=== PATIENT | female | born 1995 | race Two or more races ===

== ENCOUNTER 2024-08-26 18:32 | Inpatient (IN) ==
[2024-08-26 19:11] LABS: Pregnancy Test, Urine Negative (Negative)
[2024-08-26 19:14] LABS: Basophils # (auto) 0.03 K/uL (0.00-0.20); Basophils % (auto) 0.3 %; Eosinophils # (auto) 0.05 K/uL (0.00-0.50); Eosinophils % (auto) 0.5 %; Hematocrit (blood only) 38.6 % (37.0-47.0); Hemoglobin 13.5 g/dl (12.0-16.0); Immature Granulocytes # (auto) 0.03 K/uL (0.01-0.20); Immature Granulocytes % (auto) 0.3 %; Lymphocytes # (auto) 1.62 K/uL (1.20-3.40); Lymphocytes % (auto) 17.7 %; Mean Corpuscular Hemoglobin 32.3 pg (25.0-34.0); Mean Corpuscular Volume 92.3 fL (80.0-100.0); Mean Platelet Volume 11.1 fL (9.4-12.4); Monocytes # (auto) 0.51 K/uL (0.11-0.59); Monocytes % (auto) 5.6 %; Neutrophils # (auto) 6.91 K/uL (1.40-6.50); Neutrophils % (auto) 75.6 %; Platelet Count 254 K/uL (130-400); RDW Coefficient of Variation 12.3 % (11.5-14.5); RDW Standard Deviation 41.3 fL (36.4-46.3); Red Blood Count 4.18 M/uL (4.20-5.40); White Blood Count 9.15 K/ul (4.8-10.8)
[2024-08-26 19:21] LABS: Appearance Urine Clear (Clear); Bacteria Urine Automated None Seen (None Seen); Bilirubin Urine 1+ (Negative); Blood Urine Negative (Negative); Cast Urine Automated 0-2 /lpf (0-2); Color Urine Dark Yellow; Glucose Urine UA Negative (Negative); Ketones Urine 1+ (Negative); Leukocyte Esterase Urine Negative (Negative); Mucus Urine Present (None Prsent); Nitrite Urine Negative (Negative); Protein Urine 1+ (Negative); Urobilinogen Urine Negative (Negative); WBC Urine Automated 0-5 /hpf (0-5); pH Urine 5.5 (4.5-7.5)
[2024-08-26 19:29] LABS: Albumin Globulin Ratio 1.7 (0.9-2); Bilirubin,Total 0.4 mg/dl (0.2-1.0); Calcium 9.6 mg/dl (8.6-10.3); Creatinine Clr Calc Pharmacy 112.5 ml/min; Potassium 3.4 mmol/L (3.5-5.1)
[2024-08-26 19:32] LABS: Acetaminophen < 3 ug/ml (10-30); Salicylate < 3.0 mg/dl (3.0-30)
[2024-08-26 19:43] LABS: Thyroid Stimulating Hormone 2.502 uIu/ml (0.300-4.500)
[2024-08-26 19:50] LABS: Amphetamines+Metham, Urine Neg (Neg); Barbiturates, Urine Neg (Neg); Benzodiazepine, Urine Neg (Neg); Cocaine, Urine Neg (Neg); Fentanyl, Urine Neg (Neg); MDMA (Ecstacy), Urine Neg (Neg); Marijuana, Urine Pos (Neg); Methadone, Urine Neg (Neg); Opiate, Urine Neg (Neg); Phencyclidine, Urine Neg (Neg)
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
[2024-08-26] MEDS: ACETAMINOPHEN 500 MG TAB PO STA (23:01)
--- NOTE | 2024-08-26 23:58 | Emergency Department Note ---
ED Visit Note Patient signed out to me at change of shift from Dr. Vo. Patient medically cleared at time of signout. Patient here with suicidal ideation and self-harm with forearm laceration that was repaired by Dr. Vo. Patient was being evaluated by 3 S. at time of signout. During my shift patient accepted to 3 S. 201 signed by me. .
[2024-08-27] MEDS ORDERED: ACETAMINOPHEN 325 MG TAB PO PRN (00:02)
[2024-08-27] MEDS ORDERED: BISMUTH SUBSALICYLATE 262 MG CHEW PO PRN (00:02)
[2024-08-27] MEDS ORDERED: ALUMINUM/MAGNESIUM SUSP 30 ML UDC PO PRN (00:02)
[2024-08-27] MEDS ORDERED: hydrOXYzine HCl 25 MG TAB PO PRN ×2 (00:02)
[2024-08-27] MEDS ORDERED: MAGNESIUM HYDROXIDE SUSP 30 ML UDC PO PRN (00:02)
[2024-08-27] MEDS ORDERED: SODIUM CHLORIDE 0.65% NA SOLN 45 ML (OCEAN) PRN (00:02)
--- NOTE | 2024-08-27 08:47 | History & Physical ---
Date of Service August 27, 2024 Impression / Recommendations Impression JAYNE ARANDA is a 29-year-old woman who currently lives in [place] with her fiance, has a history of BPD, trauma, and was admitted on 08/26/24 23:47 on a 201 voluntary commitment for suicide attempt via cutting her arm and requiring sutures. Diagnostically consistent with unspecified depression with differential including acute exacerbation of BPD in addition to likely co-occurring PTSD as well as possible ADHD, TATIANA, MDD and DID per history. ASD possible but difficult to assess at this time given degree of heightened emotional dysregulation and exacerbation of BPD. Discussed medication treatment options in detail. Discussed risks, benefits and alternatives. Patient would like to start and consented to Wellbutrin for depression and off-label for ADHD and clonidine for off-label use for anxiety/P TSD and suspected ADHD. Reviewed side effects including but not limited to: low BP/syncope with clonidine and seizures, weight loss, appetite suppression, insomnia, potential for worsening irritability/anxiety, elevated BP/HR with Wellbutrin. MNPR due to heightened emotional lability and trauma history Overall I spent a total of 75 minutes for this admission including review of chart records, review of labwork, direct evaluation of the patient, counseling the patient, ordering medication, risk assessment, discussion with the psychiatric liason RN and documentation in the electronic health record. (1) Suicide attempt by cutting of wrist: (2) Borderline personality disorder: (3) Post traumatic stress disorder (PTSD): (4) ADHD (attention deficit hyperactivity disorder), combined type: (5) Depression with suicidal ideation: Plan 08/27/2024: The patient was admitted to the [facility] ([facility]) on q15 min checks (behavioral with suicide precautions) for safety. The patient will participate in group, recreational, and milieu therapies and will be offered additional individual and family sessions as clinically appropriate. -Start Wellbutrin XL 150mg daily -Start clonidine 0.1mg HS Symptom Questionnaires: Bryan BPD, DID scale, trauma questionnaire Disposition planning: CM referral, [facility] once [facility] becomes active Inventory Assets Strengths: supportive relationships, willing to get treatment Needs: safety and stabilization, medication adjustment, additional coping skills, increased outpatient services Suicide Risk Level Suicide Risk Level: High-Moderate (q15 min suicide checks) (s/p impulsive suicide attempt and still with emotional dysregulation but now denies SI, feels able to ask for support) Risk Factors Assessment Male: No : No Do You Have Access To A Gun?: No Health Problems: No Mental Health Diagnoses: Yes Substance Use Disorders: No Previous Attempt: Yes Family History of Suicide: No Previous Psychiatric Hospitalization: No Hopelessness: No Protective Factors Assessment Hindu Beliefs: Yes Employed: Yes ([employer]) Stable Relationships: Yes Supportive Family: Yes Psychiatric History Identifying Data JAYNE ARANDA is a 29-year-old woman who currently lives in [place] with her fiance, has a history of BPD, PTSD, PMDD, and was admitted on 08/26/24 23:47 on a 201 voluntary commitment for suicide attempt via cutting her arm and requiring sutures. Chief Complaint "I'm scared my boyfriend isn't answering his phone". History of Present Illness She presents for psychiatric admission for worsening depression with suicide attempt of cutting her arm with serrated scissors requiring 8 sutures in the context of conflict with her fiance, financial stress, moving across the country/away from home for the first time, and spiritual conflict. She describes feeling increasingly distressed due to feeling ignored by her boyfriend and after cutting her arm to a much deeper extent than typical, which she describes as "a borderline personality disorder episode" she called police and reported that she wanted to "end it all" and "not be here anymore". She feels the attempt was impulsive. She notes that due to his infidelity she now worries about where her fiance is and what he's doing which is causing her a lot of stress today. She endorses depressive symptoms due to "I had to leave everything behind to come here to be with him and live with him". She notes "we were ok until I find out he's been talking to others girls until I bought my plane ticket to come out here". She also just recently learned that he used to date his best friend. She feels like "I came over here until false pretenses but I love this man and I worked through the fact that he does want to change and work on his bad habits". She notes that due to his infidelity she has "emotional flashbacks" and has researched how to move past the infidelity. But she notes that yesterday with him spending all of his time on the computer and not helping around the house it all became too much. However, she also notes he's very patient and stable and that "I'm trying to stabilize it but I'm unmedicated so I don't have access to the coping skills I need". She's started to go to [employer] meetings again and feels this is helping. She notes "the spiritual issues are intrinsic to my mental health". She notes "I feel so lost" and "I have a nice personality when I'm not psychotic, I don't know why I keep getting betrayed by people". She describes a lot of social challenges and wonders about possibility of autism because she is often too blunt and struggles to socialize. She also notes having burnout in her 20s and that "I'm half the woman I used to be". She notes she struggled in childhood and was misunderstood and feels this is likely due to undiagnosed ASD. She also worries about having DID, she notes no history of amnesia but often feels like "it's someone else doing things, and finding out about co-consciousness". She endorses a lot of depersonalization and derealization. She is not currently prescribed any psychiatric medications. Psychiatric ROS notable for no current nor history of symptoms of marilu, psychosis, OCD nor eating disorder. History of self-harm via cutting, last December 2023. History of trauma and likely PTSD component. Further collateral per ED CM note on 08/26/2024: "Met with Jayne at bedside to complete psychiatric assessment. Jayne states she is here due to a really bad un-medicated BPD episode. Jayne has her fianc Enmanuel and two spiritual osmeli sors at bedside. She permits her fianc to stay in the room with her and asks the advisors to step outside. Jayne relays that she is working through infidelity by her fianc and found out about a month ago that he was reaching out to his ex-girlfriend trying to have relations with her and watching excessive amounts of pornography. Further adding to her despair, her fibia is unemployed and spends the majority of his day streaming and playing video games. Today, Jayne was at work and reached out to Enmanuel to ask him to do something and didnt get a response. Jayne states that she then logged on to [employer] online video stream asking him to call her. Jayne relays that he still did not respond to her and she freaked out cutting her arm pretty seriously with a pair of serrated scissors. She does admit to feeling suicidal when she did this and wanting the pain to end. She has not been sleeping and has had no appetite. She states that she experiences nausea every day that she attributes to her worsening mental health. Jayne moved to [facility] in May of 2024 to be with her fibia. She is originally from [place]. She is tearful as she states that she moved here away from her family and her holiness to be with this man who betrayed her. Enmanuel reached out to [place] mother today after she cut herself and [place] mother reached out to [place] local christian as Jayne was raised Jehovahs Witness. Jayne again is tearful as she states that she has to find solace in two people she has only known for a month. Jayne has no outpatient providers locally. 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 Jayne expresses sadness, anger, and regret about todays events but after much discussion is understanding of the need for maintaining her safety. She also expresses concern that her fianc could be unfaithful to her while she is inpatient. Had extensive therapeutic conversation with Jayne about putting her needs before anyone elses. Jayne is willing to sign herself in for inpatient treatment. Jayne does have a laceration to her forearm that will require 5-6 sutures. Once this is repaired, she will be medically clear. She denies any history of inpatient treatment or suicide attempts. Denies HI. Denies visual hallucinations but does admit to hearing someone saying her name from a distance when she is stressed." Past Psychiatric History Current Psychiatric Diagnosis: Unspecified depressive disorder Outpatient Services: none currently, previously did in [place] at [place] for psych & therapy Previous Psych Admissions: none Do You Have Access To A Gun?: No History of Previous Suicide Attempt: Yes (three lifetime-last December 2023 took pills as an overdose) Past Medication Trials: -hx Zoloft (helpful for awhile) -hx Prozac but caused obsessive suicidal thoughts -hx Wellbutrin XL 450mg helped a lot -Strattera 10mg augmented with Wellbutrin Past Head Trauma/Neuro History History of Concussion/Seizure: No Allergies Allergy/AdvReac Type Severity Reaction Status Date / Time No Known Allergies Allergy Verified 08/26/24 22:52 Family History Family History of: Depression, Other Mood Disorders, Anxiety, Psychosis/ThoughtDisorder and Doesn't Know Alcohol History Hx of Alcohol Use Over the Past 12 Months: No AUDIT Total Score: 0 Smoking Use Have You Smoked or Used Tobacco Products in the Last 30 Days: No Smoking Status: Never smoker Substance History Hx of Prescription Med Misuse Over the Past 12 Months: No Hx of Over the Counter Med Misuse Over the Past 12 Months: No Hx of Inhalent Misuse Over the Past 12 Months: No Hx of Organic Substance Use Over the Past 12 Months: Yes (Marijuana) Hx of Illegal Substances/Street Drug Use Over Past 12 Months: No Problems as a Result of Past Substance Use: None Identified Daily cannabis after work likes that it calms her down and helps with sleep Personal History Living Arrangements: Apartment Highest Grade Completed: High School Graduate 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 Other Beliefs That Will Affect Care: None Current Legal Problems: No Hx Legal Problems: No Hx Traumatic Life Events: Yes Patient History Social History Smoking Status: Never smoker Preferred Language: Tajik Communication Ability: Effective Wire Bender Hand Required: No Beliefs That Will Affect Care: None Feels Safe at Home: Yes Gender Identity: Female Assistive Devices: Glasses Review of Systems Review of Systems: All systems reviewed & are unremarkable except as noted in HPI & below Physical Exam Psychiatric: Orientation: alert and oriented x 3 Apperance: appropriately dressed and appropriately groomed Eye Contact: good eye contact Motor Behavior: no abnormal motor movements Speech: normal rate/rhythm/volume of speech Affect: + depressed affect, + anxious affect, + tearful affect, + labile affect and + irritable affect Mood: + depressed mood and + anxious mood Thought Process: + circumstantial thought process Thought Content: reality based without delusions Suicidal Thoughts: denies suicidal thoughts (s/p attempt), denies suicidal plan and denies suicidal intent Homicidal Thoughts: denies homicidal thoughts Hallucinations: no auditory hallucinations and no visual hallucinations Cognition: recent memory grossly intact, remote memory grossly intact, attention grossly intact and language grossly intact Estimated Intelligence: consistent with education level Insight: + fair insight Judgment: + limited judgement Vital Signs (Past 24 Hours): Last Vital Signs Temp 37.3 C 08/27/24 06:40 Pulse 64 08/27/24 06:41 Resp 16 08/27/24 06:40 BP 112/71 08/27/24 06:41 Pulse Ox 100 08/27/24 00:15 O2 Del Method Room Air 08/27/24 00:15 Exam Statement: A physical exam was performed in the ED by Dr. Vo for the purposes of medical clearance. I accept that physical as correct and adequate for the purposes of the inpatient physical exam. Results & Data [facility] Laboratory Results Laboratory Results - last 24 hr 08/26/24 08/26/24 18:45 Unknown WBC 9.15 RBC 4.18 L Hgb 13.5 Hct 38.6 MCV 92.3 MCH 32.3 MCHC 35.0 RDW Std Deviation 41.3 RDW Coeff of Jamari 12.3 Plt Count 254 MPV 11.1 Immature Gran % (Auto) 0.3 Neut % (Auto) 75.6 Lymph % (Auto) 17.7 Wood % (Auto) 5.6 Eos % (Auto) 0.5 Baso % (Auto) 0.3 Neut # (Auto) 6.91 H Lymph # (Auto) 1.62 Wood # (Auto) 0.51 Eos # (Auto) 0.05 Baso # (Auto) 0.03 Immature Gran # (Auto) 0.03 Sodium 139 Potassium 3.4 L Chloride 105 Carbon Dioxide 27 Anion Gap 7 BUN 9 Creatinine 0.82 Est Cr Clr Drug Dosing 112.5 eGFR 99.24 BUN/Creatinine Ratio 11.0 Glucose 105 H Calcium 9.6 Total Bilirubin 0.4 AST 11 L ALT 8 Alkaline Phosphatase 39 Total Protein 8.0 Albumin 5.0 Globulin 3.0 Albumin/Globulin Ratio 1.7 TSH 2.502 Urine Color Dark Yellow Urine Appearance Clear Urine pH 5.5 Ur Specific [place] 1.030 Urine Protein 1+ H Urine Glucose (UA) Negative Urine Ketones 1+ H Urine Blood Negative Urine Nitrite Negative Urine Bilirubin 1+ H Urine Urobilinogen Negative Ur Leukocyte Esterase Negative Urine WBC (Auto) 0-5 Urine RBC (Auto) 3-5 H U Hyaline Cast (Auto) 0-2 U Epithel Cells (Auto) 3-5 H Urine Bacteria (Auto) None Seen Urine Mucus Present A Urine Test Negative Salicylates < 3.0 L Urine Opiates Screen Neg Ur Methadone, Qual Neg Urine Fentanyl Screen Neg Acetaminophen < 3 L Urine Barbiturates Neg Ur Phencyclidine (PCP) Neg U Amphetamin/Meth Scrn Neg MDMA (Ecstasy) Screen Neg U Benzodiazepines Scrn Neg Ur Cocaine Metabolite Neg U Marijuana (THC) Screen Pos H U Marijuana THC Carboxy Pending Drug Screen Comment Pending Ethyl Alcohol mg/dL < 10.0 SARS-CoV-2, RNA, NAAT NEGATIVE Current Inpatient Medications Current Inpatient Medications: Current Inpatient Medications Acetaminophen (Acetaminophen 325 Mg Tab) 650 mg PO Q4H PRN PRN Reason: Headache or Minor Fever Stop: 09/26/24 00:01 Al Hydrox/Mg Hydrox/Simethicone (Aluminum/Magnesium Susp 30 Ml Udc) 30 ml PO Q4H PRN PRN Reason: GI Upset Stop: 09/26/24 00:01 Bismuth Subsalicylate (Bismuth Subsalicylate 262 Mg Chew) 2 tab PO Q30M PRN PRN Reason: Loose Stool/Diarrhea Stop: 09/26/24 00:01 Hydroxyzine HCl (Hydroxyzine Hcl 25 Mg Tab) 50 mg PO HSZ PRN PRN Reason: Insomnia Stop: 09/26/24 00:01 Hydroxyzine HCl (Hydroxyzine Hcl 25 Mg Tab) 25 mg PO Q4H PRN PRN Reason: Anxiety Stop: 09/26/24 00:01 Magnesium Hydroxide (Magnesium Hydroxide Susp 30 Ml Udc) 30 ml PO DAILY PRN PRN Reason: Constipation Stop: 09/26/24 00:01 Sodium Chloride (Sodium Chloride 0.65% Na Soln 45 Ml ([place])) 1 - 2 sprays NA PRN PRN PRN Reason: Nasal Dryness/Congestion Stop: 09/26/24 00:01
[2024-08-27] MEDS: buPROPion XL 150 MG TABCR PO SCH (12:38)
[2024-08-27] MEDS: INFLUENZA VACC TS2024-25(6m+)/PF (IIV3) 0.5mL Syr IM ONE (19:47)
[2024-08-27] MEDS: cloNIDine HCL 0.1 MG TAB PO SCH (20:22)
--- NOTE | 2024-08-28 11:03 | Discharge Summary ---
Date of Service August 28, 2024 History of Present Illness She presents for psychiatric admission for worsening depression with suicide attempt of cutting her arm with serrated scissors requiring 8 sutures in the context of conflict with her fiance, financial stress, moving across the country/away from home for the first time, and spiritual conflict. She describes feeling increasingly distressed due to feeling ignored by her boyfriend and after cutting her arm to a much deeper extent than typical, which she describes as "a borderline personality disorder episode" she called police and reported that she wanted to "end it all" and "not be here anymore". She feels the attempt was impulsive. She notes that due to his infidelity she now worries about where her fiance is and what he's doing which is causing her a lot of stress today. She endorses depressive symptoms due to "I had to leave everything behind to come here to be with him and live with him". She notes "we were ok until I find out he's been talking to others girls until I bought my plane ticket to come out here". She also just recently learned that he used to date his best friend. She feels like "I came over here until false pretenses but I love this man and I worked through the fact that he does want to change and work on his bad habits". She notes that due to his infidelity she has "emotional flashbacks" and has researched how to move past the infidelity. But she notes that yesterday with him spending all of his time on the computer and not helping around the house it all became too much. However, she also notes he's very patient and stable and that "I'm trying to stabilize it but I'm unmedicated so I don't have access to the coping skills I need". She's started to go to [employer] meetings again and feels this is helping. She notes "the spiritual issues are intrinsic to my mental health". She notes "I feel so lost" and "I have a nice personality when I'm not psychotic, I don't know why I keep getting betrayed by people". She describes a lot of social challenges and wonders about possibility of autism because she is often too blunt and struggles to socialize. She also notes having burnout in her 20s and that "I'm half the woman I used to be". She notes she struggled in childhood and was misunderstood and feels this is likely due to undiagnosed ASD. She also worries about having DID, she notes no history of amnesia but often feels like "it's someone else doing things, and finding out about co-consciousness". She endorses a lot of depersonalization and derealization. She is not currently prescribed any psychiatric medications. Psychiatric ROS notable for no current nor history of symptoms of marilu, psychosis, OCD nor eating disorder. History of self-harm via cutting, last December 2023. History of trauma and likely PTSD component. Further collateral per ED CM note on 08/26/2024: "Met with Almaz at bedside to complete psychiatric assessment. Almaz states she is here due to a really bad un-medicated BPD episode. Almaz has her fianc Enmanuel and two spiritual advisors at bedside. She permits her fibia to stay in the room with her and asks the advisors to step outside. Almaz relays that she is working through infidelity by her fibia and found out about a month ago that he was reaching out to his ex-girlfriend trying to have relations with her and watching excessive amounts of pornography. Further adding to her despair, her fianc is unemployed and spends the majority of his day streaming and playing video games. Today, Almaz was at work and reached out to Enmanuel to ask him to do something and didnt get a response. Almaz states that she then logged on to [employer] online video stream asking him to call her. Almaz relays that he still did not respond to her and she freaked out cutting her arm pretty seriously with a pair of serrated scissors. She does admit to feeling suicidal when she did this and wanting the pain to end. She has not been sleeping and has had no appetite. She states that she experiences nausea every day that she attributes to [facility]. Almaz moved to [facility] in May of 2024 to be with her fibia. She is originally from [place]. She is tearful as she states that she moved here away from her family and her yazidi to be with this man who betrayed her. Enmanuel reached out to [place] mother today after she cut herself and [place] mother reached out to [facility] local voodoo as Almaz was raised [employer] Witness. Almaz again is tearful as she states that she has to find solace in two people she has only known for a month. Almaz has no outpatient providers locally. 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 Almaz expresses sadness, anger, and regret about todays events but after much discussion is understanding of the need for maintaining her safety. She also expresses concern that her fianc could be unfaithful to her while she is inpatient. Had extensive therapeutic conversation with Almaz about putting her needs before anyone elses. Almaz is willing to sign herself in for inpatient treatment. Almaz does have a laceration to her forearm that will require 5-6 sutures. Once this is repaired, she will be medically clear. She denies any history of inpatient treatment or suicide attempts. Denies HI. Denies visual hallucinations but does admit to hearing someone saying her name from a distance when she is stressed." Physical Exam Vital Signs (Past 24 Hours) Last Vital Signs Temp 37.2 C 08/28/24 10:13 Pulse 84 08/28/24 10:13 Resp 16 08/28/24 10:13 BP 109/78 08/28/24 10:13 Pulse Ox 100 08/28/24 10:13 O2 Del Method Room Air 08/27/24 00:15 Principal Diagnosis Borderline Personality Disorder Psychiatric Data See daily stay summary. In short, patient was engaged with the social/therapeutic milieu of the unit, safety was maintained and the patient was cooperative with care. Medication changes included initiation of Wellbutrin XL 150mg daily for depression and suspected ADHD and clonidine 0.1mg HS for ADHD and off-label for PTSD/anxiety and they tolerated this well. A support session was held and safety plan was completed prior to discharge. Consider vising urgent care or new PCP pending insurance/financial resources in ~7 days for removal of sutures. They participated in safety planning and in discussions about ways to seek support and recognizing warning signs and utilizing coping skills. Reviewed ways to have their safety plan and contacts easily available should thoughts of SI re-emerge in the future. Reviewed importance of seeking emergency care should SI intensify, worsen or should they feel unsafe in the future which they agree to do. On the day of discharge they stated their mood was "really good, I slept really well and the medications are working well" and remained future-oriented including spending time with her fiance, getting back to work, engaging with her restoration community, and engaging in aftercare appointments for case management and once insurance becomes active consideration for [facility] and/or local psychiatry, therapy with assistance of CM. Day of Discharge Assessment Today the patient voices readiness for discharge. They note improvement in mood and anxiety. They deny thoughts of harm to self or others. Thoughts are organized and they are clinically improved from admission. There is no evidence of psychosis. They improved in the hospital with support and medication adjustments. They agree to take medications as prescribed and keep follow-up appointments. At the time of the discharge they are deemed to be stable and appropriate for outpatient level of care. They are not deemed to be at imminent risk of harm to self or others. They are aware of emergency and crisis services. Knows to call 911 or go to nearest emergency care center if in a crisis which cannot be handled as an outpatient. Suicide risk assessment: Acute risk is low given improvement in mood and denial of SI, lack of access to lethal means, improvement in sleep, hopefulness and no evidence for dissociation nor self-harm urges. Chronic risk is moderate given some non-modifiable risk factors: psychiatric co-morbid diagnoses, periods of impulsivity, prior attempt, hx self-harm, emotional reactivity, cluster B personality disorder, childhood trauma but also with protective factors including employed, good social support, sense of responsibility to family and social supports, outpatient care in place- CM referral, positive coping skills, positive problem solving, willingness to engage with treatment and self-observation. Counseled on ways to reduce acute and chronic risk including engaging with outpatient providers, using safety plan if needed, utilizing supports, taking medication, and using coping skills. Modifiable risk factors of SI and depression were addressed during hospitalization through development of new coping skills, support meeting, safety planning, and medication adjustments. Discharge physical exam: See admission H&P, MSE per above and day of discharge summary. Overall, I spent a total of 35 minutes on this case including meeting with the patient, reviewing the chart, nursing report, multidisciplinary team meeting, discharge orders, anticipatory planning, safety planning, risk assessment and documentation. Transition of Care Transition Of Care Record: was reviewed with the patient Advance Directives Advance Directives Information Provided: Yes Advance Directives: No Mental Health Advance Directive: No Advance Directives on File: No Living Will: No Power of Livestock Trucker: No Advance Directives Reason:: Declines as Mental Health Visit. Suicide Risk Level Suicide Risk Level Comments: Acute risk of self-harm is low given denial of SI, future-oriented, see further assessment above Risk Factors Assessment Male: No : No Do You Have Access To A Gun?: No Health Problems: No Mental Health Diagnoses: Yes Substance Use Disorders: No Previous Attempt: Yes Family History of Suicide: No Previous Psychiatric Hospitalization: No Hopelessness: No Protective Factors Assessment Zoroastrian Beliefs: Yes Employed: Yes ([employer]) Stable Relationships: Yes Supportive Family: Yes Discharge Data Lab Results 08/26/24 08/26/24 18:45 Unknown WBC 9.15 RBC 4.18 L Hgb 13.5 Hct 38.6 MCV 92.3 MCH 32.3 MCHC 35.0 RDW Std Deviation 41.3 RDW Coeff of Jamari 12.3 Plt Count 254 MPV 11.1 Immature Gran % (Auto) 0.3 Neut % (Auto) 75.6 Lymph % (Auto) 17.7 [place] % (Auto) 5.6 Eos % (Auto) 0.5 Baso % (Auto) 0.3 Neut # (Auto) 6.91 H Lymph # (Auto) 1.62 [place] # (Auto) 0.51 Eos # (Auto) 0.05 Baso # (Auto) 0.03 Immature Gran # (Auto) 0.03 Sodium 139 Potassium 3.4 L Chloride 105 Carbon Dioxide 27 Anion Gap 7 BUN 9 Creatinine 0.82 Est Cr Clr Drug Dosing 112.5 eGFR 99.24 BUN/Creatinine Ratio 11.0 Glucose 105 H Calcium 9.6 Total Bilirubin 0.4 AST 11 L ALT 8 Alkaline Phosphatase 39 Total Protein 8.0 Albumin 5.0 Globulin 3.0 Albumin/Globulin Ratio 1.7 TSH 2.502 Urine Color Dark Yellow Urine Appearance Clear Urine pH 5.5 Ur Specific [place] 1.030 Urine Protein 1+ H Urine Glucose (UA) Negative Urine Ketones 1+ H Urine Blood Negative Urine Nitrite Negative Urine Bilirubin 1+ H Urine Urobilinogen Negative Ur Leukocyte Esterase Negative Urine WBC (Auto) 0-5 Urine RBC (Auto) 3-5 H U Hyaline Cast (Auto) 0-2 U Epithel Cells (Auto) 3-5 H Urine Bacteria (Auto) None Seen Urine Mucus Present A Urine Test Negative Salicylates < 3.0 L Urine Opiates Screen Neg Ur Methadone, Qual Neg Urine Fentanyl Screen Neg Acetaminophen < 3 L Urine Barbiturates Neg Ur Phencyclidine (PCP) Neg U Amphetamin/Meth Scrn Neg MDMA (Ecstasy) Screen Neg U Benzodiazepines Scrn Neg Ur Cocaine Metabolite Neg U Marijuana (THC) Screen Pos H Ethyl Alcohol mg/dL < 10.0 SARS-CoV-2, RNA, NAAT NEGATIVE Hospital Course (1) Suicide attempt by cutting of wrist: (2) Borderline personality disorder: (3) Post traumatic stress disorder (PTSD): (4) ADHD (attention deficit hyperactivity disorder), combined type: (5) Depression with suicidal ideation: Plan 08/28/2024: Tolerating medications well, desires discharge, feels safe and financial concerns for longer stay as she doesn't currently have insurance. Discharge reasonable and no current safety concerns. 08/27/2024: The patient was admitted to the [facility] ([facility]) on q15 min checks (behavioral with suicide precautions) for safety. The patient will participate in group, recreational, and milieu therapies and will be offered additional individual and family sessions as clinically appropriate. -Start Wellbutrin XL 150mg daily -Start clonidine 0.1mg HS Symptom Questionnaires: Bryan BPD, DID scale, trauma questionnaire-reviewed and consistent with BPD, possible DID and PTSD as well as her stated concerns for possible ASD/neurodivergence Disposition planning: CM referral, consideration for [facility] once insurance becomes active Mental Health & Subst Abuse Tx Therapist Name of Therapist: N/A Manager Supply Name of Manager Supply: ESTUARDO CM Phone Number for Manager Supply: [phone] Post Discharge Appointments Other #1: Name of Aftercare Appointment: [facility] Phone Number of Aftercare Appointment: Aftercare Appointment Comment: [facility].Call if interested when insurance activ Contact Information Discharge Discharge Address: [address], [facility] [address] Discharge Plan Discharge Items Patient Disposition: Home - Self-Care Reason For Visit: UNSPECIFIED DEPRESSIVE DISORDER, SUICIDE PRECAUTIO Discharge Diagnosis: Borderline Personality Disorder Activity: Resume your previous activity Non-emergency contact: Manufacturing Team Member Call non-emergency contact if: you have any medication questions and your symptoms worsen Follow-up/Referrals: PCP,NO [Primary Care Provider] - Diet: Regular Addtl Attending Provider Instructions: Optional mobile apps: -Suicide safety plan -Virtual [facility] SPECIAL CARE INSTRUCTIONS: 1. Follow through with your scheduled aftercare appointments. If unable to keep an appointment, please call to reschedule. 2. Take your medication only as prescribed. Medication should not be changed or stopped without the approval of your doctor. In the event of worsening symptoms or concerns about side effects, contact your doctor immediately. 3. Utilize new healthy coping skills, anger management skills, and stress management skills learned during your hospitalization. Journal feelings and process them with a support person. Identify stressors or situations that may result in relapse, deterioration or inappropriate behaviors and develop a plan to deal with those issues. 4. If your coping skills are ineffective and you are in crisis, contact your outpatient providers for direction. If unable to reach your providers, please call the [facility] CRISIS LINE AT , go to the [facility] walk-in center at [address] [place] [address] [address], [place], or go to the closest Emergency Room. 5. Avoid alcohol and un-prescribed drugs. 6. You have been provided with the Mental Health Advance Directives Pamphlet for your review. 7. Your condition is stable for discharge to outpatient level of care, but recovery is an ongoing process. Ifthoughts to harm yourself or others return, follow the safety plan developed during your stay. Planning for a safe return home includes securing weapons. Our treatment team recommends weaponsbe removed from the home until your outpatient provider reassesses your progress. In rare cases where the items themselvescannot be removed, guns and ammunitionshould be secured separatelyand keys stored by a reliable personoutside of the home. If you were admitted on an involuntary commitment, the police or other legal authorities may be involved in this process. AFTERCARE APPOINTMENTS: * Please call your insurance company prior to your scheduled appointment to confirm your aftercare providers are covered. Take your insurance information to your appointments. WHO TO CALL AND WHEN: Medical Emergencies: For questions or emergencies related to your hospital stay, please contact the Inpatient Behavioral Health Unit at [phone]. A network planner is on-call 30/01 for the Behavioral Health Unit for emergencies At any time you feel your situation is an emergency, you may also call 911 immediately. National Crisis Hotline: 988 Pending Studies at Discharge: No Stand-Alone Forms: My [facility] Medications and DC Order Prescriptions: New clonidine HCl 0.1 mg Tablet 0.1 mg PO HS 30 Days Qty: 30 0RF bupropion HCl 150 mg Tablet Extended Release 24 Hr 150 mg PO QAM 30 Days Qty: 30 0RF Discharge Orders: Discharge Order (Routine); Ordered 08/28/24 Ordered By: Alexa Posada Admission Data Admit Date/Time: 08/26/24 23:47 Attending Provider: Alexa Posada Admit Provider: Alexa Posada Primary Care Provider: PCP,NO Other Interventions: Discharge Summary Assessment (RN) Last Done: 08/28/24 10:13 PSY Interdisciplinary Discharge Planning Last Done: 08/28/24 11:31 Coding Level of Care Code 14769 D/C day mgmt > 30 min Diagnoses Suicide attempt by cutting of wrist X78.9XXA Borderline personality disorder F60.3 Post traumatic stress disorder (PTSD) F43.10 ADHD (attention deficit hyperactivity disorder), combined type F90.2 Depression with suicidal ideation F32.A; R45.851
[2024-08-30 11:36] LABS: Marijuana Quant, GCMS Urine 2005 ng/mL (<5)
== END 2024-08-28 11:40 | disposition home or self-care (01) | DRG 883 ==
LOC: ED 18:32 → 3S 23:42